=== PATIENT | female | born 1965 | race Caucasian/White ===

== ENCOUNTER → 2017-01-22 | Outpatient (CLI) | payer OTHER ==
--- NOTE | 2017-01-22 16:07 | Diagnostic Imaging Report ---
INDICATION: Screening. EXAMINATION: Bilateral screening mammogram dated 01/22/2017. COMPARISON: 12/07/2014, 01/22/2016, and 11/30/2013. The current study was also evaluated with a Computer Aided Detection (CAD) system. FINDINGS: The breasts are heterogeneously dense. There are bilateral calcifications. These are stable. No new suspicious microcalcifications or new dominant masses appreciated. IMPRESSION: 1. Stable appearance of the breasts. No mammographic evidence for malignancy is appreciated. ACR BI-RADS Category 2: Benign findings. Result letter will be mailed to the patient. Note: At least 10% of breast cancer is not imaged by mammography. Dictated by: Dictated on workstation # [id number]
== END ==
LOC: RAD 08:28
PROVIDERS: ATTEND Family Medicine
DX: Z12.31 Encounter for screening mammogram for malignant neoplasm of breast (principal)